=== PATIENT | male | born 1995 | race Caucasian/White ===

== ENCOUNTER 2017-07-26 13:28 | Emergency (ER) | payer BC, OTHER ==
[2017-07-26 14:41] LABS: #Eosinphils 0.1 thou/uL (0.0-0.7); #Lymphocytes 1.2 thou/uL (1.20-3.40); #Monocytes 0.3 thou/uL (0.11-0.59); #Neutrophils 3.6 thou/uL (1.40-6.50); %Basophils 0.4 % (0.0-1.0); %Eosinophils 1.9 % (0.0-10.0); %Lymphocytes 23.3 % (21.0-51.0); %Monocytes 5.9 % (0.0-10.0); Hematocrit 42.6 % (42.0-52.0); Mean Platelet Volume 7.2 fL (7.4-10.4); Red Blood Cell (RBC) Count 4.45 mill/uL (4.70-6.10); White Blood Cell (WBC) Count 5.2 thou/uL (4.8-10.8)
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
[2017-07-26 14:59] LABS: ALT (SGPT) 9 U/L (8-55); AST (SGOT) 9 U/L (5-34); Alkaline Phosphatase 83 U/L (40-150); Anion Gap 13 mmol/L (10-20); BUN (Urea Nitrogen) 12 mg/dL (8.9-20.6); Bilirubin, Total 0.3 mg/dL (0.2-1.2); CK (CPK) 62 U/L (30-200); Calc. Creatinine Clearance 0 mL/min (70-130); Calcium 9.3 mg/dL (7.8-10.44); Carbon Dioxide 31 mmol/L (22-29); Chloride 106 mmol/L (98-107); Estimated GFR-MDRD Greater than 90; Globulin 2.9 g/dL (2.4-3.5); Lipase 27 U/L (8-78); Protein, Total 7.1 g/dL (6.0-8.3)
--- NOTE | 2017-07-26 15:12 | RAD ---
PORTABLE CHEST ONE VIEW: Date: 07-26-17 Time: 3:01 p.m. History: Syncope. FINDINGS: The heart size is normal. The lungs are expanded without focal areas of consolidation, pneumothorax, or pleural effusions. Bony structures are normal. IMPRESSION: Normal exam. POS: [facility]
== END 2017-07-26 15:53 | disposition home or self-care (01) ==
LOC: ERS 13:28
DX: R55 Syncope and collapse (principal); E22.1 Hyperprolactinemia; F32.9 Major depressive disorder, single episode, unspecified; F17.210 Nicotine dependence, cigarettes, uncomplicated; Z79.899 Other long term (current) drug therapy
CPT/HCPCS: 36415; 70450; 71010; 80053; 82550; 83690; 84146; 85025; 93005

== ENCOUNTER 2020-05-16 14:57 | Emergency (ER) | payer BC ==
--- NOTE | 2020-05-16 15:39 | RAD ---
EXAM: Single view of the chest HISTORY: Syncope with loss of consciousness COMPARISON: 07/26/2017 FINDINGS: Single view of the chest shows a normal sized cardiomediastinal silhouette. There is no kayden dence of consolidation, mass, or pleural effusion. No acute osseous abnormality. IMPRESSION: No evidence of acute cardiopulmonary disease
[2020-05-16 15:54] LABS: #Eosinphils 0.1 thou/uL (0.0-0.7); #Lymphocytes 1.1 thou/uL (1.20-3.40); #Monocytes 0.6 thou/uL (0.11-0.59); #Neutrophils 10.8 thou/uL (1.40-6.50); %Basophils 0.2 % (0.0-1.0); %Eosinophils 0.5 % (0.0-10.0); %Lymphocytes 8.9 % (21.0-51.0); %Monocytes 4.7 % (0.0-10.0); %Neutrophils 85.7 % (42.0-75.0); Hemoglobin 16.1 g/dL (14.0-18.0); Mean Corpuscular HGB CONC 35.6 g/dL (32.0-36.0); Mean Corpuscular Hemoglobin 32.6 pg (27.0-31.0); Mean Corpuscular Volume 91.6 fL (78.0-98.0); Mean Platelet Volume 7.3 fL (7.4-10.4); Platelet Count 300 thou/uL (130-400); RBC Distribution Width 11.2 % (11.5-14.5); Red Blood Cell (RBC) Count 4.93 mill/uL (4.70-6.10); White Blood Cell (WBC) Count 12.6 thou/uL (4.8-10.8)
[2020-05-16 16:19] LABS: ALT (SGPT) 12 U/L (8-55); AST (SGOT) 13 U/L (5-34); Albumin 4.6 g/dL (3.5-5.0); Alkaline Phosphatase 96 U/L (40-110); Anion Gap 14 mmol/L (10-20); BUN (Urea Nitrogen) 11 mg/dL (8.9-20.6); Bilirubin, Total 0.6 mg/dL (0.2-1.2); CK (CPK) 105 U/L (30-200); Calc. Creatinine Clearance 0 mL/min (70-130); Calcium 9.7 mg/dL (7.8-10.44); Carbon Dioxide 27 mmol/L (22-29); Chloride 103 mmol/L (98-107); Estimated GFR-MDRD Greater than 90; Globulin 2.8 g/dL (2.4-3.5); Glucose 108 mg/dL (70-105); Potassium 3.7 mmol/L (3.5-5.1); Protein, Total 7.4 g/dL (6.0-8.3); Sodium 140 mmol/L (136-145)
[2020-05-16] MEDS ORDERED: Ondansetron PF 4 MG/2 ML Vial ONE (16:53)
[2020-05-16] MEDS ORDERED: Morphine 4 MG/ML VIAL ONE (16:53)
--- NOTE | 2020-05-16 18:11 | CT ---
CT OF THORACIC SPINE PERFORMED WITHOUT CONTRAST ENHANCEMENT: 05/16/20 HISTORY: Fall. Patient complains of back pain. The visualized lung hernandez show no infiltrative process or signs of any pulmonary contusion. I do not visualize any rib fractures in the portions of the ribs included on this exam. There is some minimal compression changes involving the superior end plates of T4, T5, T6 and T7. The re is no bony retropulsion. Given patient's history, these are most likely acute in nature although t his is not definitive. There is no wedge shaped compression change. There is no canal stenosis. IMPRESSION: Some minimal loss of vertebral body height of the superior end plates of T4, T5, T6 and T7 suggesting some minimal compression injuries. Clinical correlation as to whether this is the area of patient's pain. I would favor that these are probably more acute but it is difficult to exclude as older injury . POS: OFF
[2020-05-16] MEDS ORDERED: HYDROcodone/Acetaminophen 10/325 mg Tablet ONE (19:02)
== END 2020-05-16 20:00 | disposition home or self-care (01) ==
LOC: ERS 14:57
DX: S22.049A Unspecified fracture of fourth thoracic vertebra, initial encounter for closed fracture (principal); S22.059A Unspecified fracture of T5-T6 vertebra, initial encounter for closed fracture; S22.069A Unspecified fracture of T7-T8 vertebra, initial encounter for closed fracture; R55 Syncope and collapse; F41.9 Anxiety disorder, unspecified; F32.9 Major depressive disorder, single episode, unspecified; F17.210 Nicotine dependence, cigarettes, uncomplicated; Z79.899 Other long term (current) drug therapy
CPT/HCPCS: 36415; 36416; 71045; 72128; 80053; 82550; 84484; 85025; 93005; 94760; 96361; 96374; 96375; J2270; J2405